=== PATIENT | male | born 1980 ===

== ENCOUNTER 2018-12-02 11:05 | Inpatient (IN) ==
[2018-12-02] MEDS ORDERED: ASPIRIN PO ONE (11:21)
[2018-12-02] MEDS ORDERED: CARDIZEM IV ONE (11:25)
--- NOTE | 2018-12-02 11:29 | EKG Report ---
Test Performed on : 12/02/2018 11:16:55 AM Test Reason : palpitations Blood Pressure : / mmHG Vent. Rate : 101 BPM Atrial Rate : 241 BPM P-R Int : 000 ms QRS Dur : 086 ms QT Int : 328 ms P-R-T Axes : 000 050 041 degrees QTc Int : 425 ms Atrial fibrillation. with rapid ventricular response. Abnormal ECG No previous ECGs available Unconfirmed Result
--- NOTE | 2018-12-02 11:42 | Diag Imaging Result Doc PS360 ---
CHEST-PORTABLE - 12/02/2018 INDICATION: sob/cp COMPARISON: None FINDINGS: The lungs are normally expanded and clear. Heart size and mediastinal contours are normal. No pneumothorax or pleural effusion. IMPRESSION: Negative exam. Electronically signed by Ashish Hernandez 12/02/2018 11:39 AM
[2018-12-02 11:47] LABS: BASO# 0.01 X1000 (0.0-0.2); BASO% 0.2 % (0.0-0.8); EOS# 0.06 X1000 (0.0-0.7); EOS% 1.2 % (0.0-10.0); HEMOGLOBIN 15.9 g/dL (14.0-18.0); LYMPH% 27.7 % (20.5-51.1); MCH 29.4 PG (27-31); MCHC 33.8 g/dL (33-37); MONO# 0.38 X1000 (0.11-0.59); MONO% 7.5 % (1.7-9.3); MPV 10.4 FL (7.4-10.4); NEUT% 63.4 % (42.2-75.2); PLT 184 X1000 (130-400); RDW 12.6 % (11.5-14.5); WBC 5.05 X1000 (4.8-10.8)
[2018-12-02 12:03] LABS: INR 1.03; PROTIME 14.4 Seconds (11.0-16.0)
[2018-12-02 12:04] LABS: PTT 32.7 Seconds (22.3-41.8)
[2018-12-02 12:10] LABS: AGAP 12; ALB/GLOB RATIO 1.6; ALBUMIN 4.5 g/dL (3.5-5.0); ALKALINE PHOSPHATASE 71 U/L (32-122); BUN 19 mg/dL (8-22); CHLORIDE 106 mmol/L (98-107); CK PROFILE 558 U/L (24-204); COSMO 287; CREATININE 1.2 mg/dL (0.7-1.2); ESTIMATED GFR > 60; GLUCOSE 98 mg/dL (70-104); GOT 22 U/L (10-34); GPT 26 U/L (10-44); POTASSIUM 4.2 mmol/L (3.5-5.1); SODIUM 143 mmol/L (136-145); TCO2 25 mmol/L (25-35); TOTAL BILIRUBIN 0.72 mg/dL (0.20-1.00); TOTAL PROTEIN 7.3 g/dL (6.3-8.3)
[2018-12-02 12:34] LABS: CK INDEX 0.4 (0.0-2.5); CK-MB 2.22 ng/mL (0.0-5.0)
[2018-12-02] MEDS: CARDIZEM 125 MG in NS 100 ML IV SCH (13:16)
--- NOTE | 2018-12-02 14:14 | PROVIDER DOCUMENTATION ---
This chart was entered by Salena Romero Scribe, acting as scribe for Sonali Vergara MD. HPI-Cardiac General - General Stated Complaint: CHEST DISCOMFORT Time Seen by Provider: 12/02/18 11:21 Source: patient Allergies/Adverse Reactions: Patient Allergies Allergy/AdvReac Type Severity Reaction Status Date / Time No Known Allergies Allergy Verified 12/02/18 12:32 - History of Present Illness-Cardiac Nature of Presenting Problem: Patient is a 38 year old male who presents with palpitations, shortness of breath and dizziness. States symptoms started 1 week ago and have been intermittent but worsened today. Patient was seen at an urgent care and was informed his EKG showed A fib. States family history of A fib. Location: reports: central Quality of Pain: reports: pressure Severity in ED: mild Onset/Duration: 1 week ago Timing: still present, intermittent, getting worse Context/Activities at Onset: reports: light activity Modifying Factors: improves with: nothing Palpitation Quality: irregular History of arrythmia: reports: none Recent use of:: reports: no stimulants Associated Symptoms: reports: dizziness, shortness of breath Similar Symptoms Previously?: Yes Recently Seen Here or By Another Healthcare Provider: No Review of Systems - Adult - REVIEW OF SYSTEMS - ADULT Constitutional: reports: no symptoms reported Eyes: reports: no symptoms reported Ears, Nose, Mouth & Throat: reports: no symptoms reported Cardiovascular: reports: palpitations. denies: chest pain, syncope Respiratory: reports: shortness of breath. denies: cough, wheezing Gastrointestinal: reports: no symptoms reported Genitourinary: reports: no symptoms reported Musculoskeletal: reports: no symptoms reported Integumentary: reports: no symptoms reported Neurological: reports: dizziness/vertigo (dizziness). denies: headache/migraines, numbness, seizure, syncope Psychiatric: reports: no symptoms reported Endocrine: reports: no symptoms reported Hematologic/Lymphatic: reports: no symptoms reported Allergic/Immunologic: reports: no symptoms reported All Other Systems: Reviewed and Negative Past History - Adult - PAST MEDICAL HISTORY-ADULT Review of Records: reports: Nursing Assessment Review, Medications Reviewed, Social history reviewed & non-contributory. Major Childhood Illnesses: reports: denies history Cardiovascular: reports: denies history Respiratory: reports: denies history Gastrointestinal: reports: denies history Obstetrical/Gynecological: reports: denies history Genitourinary: reports: denies history Musculoskeletal: reports: denies history Neurological: reports: denies history Psychiatric: reports: denies history Endocrine/Immune: reports: denies history Other Conditions: reports: denies history - PRIOR SURGERIES/PROCEDURES Surgical/Procedure History: reports: none - IMMUNIZATION STATUS Childhood Immunizations: See Nurse Assessment Flu Vaccine: See Nurse Assessment - FAMILY HISTORY Family History: reviewed, not pertinent, other (A fib) - SOCIAL HISTORY Smoking: denies Substance Use: denies Physical Exam-General - PHYSICAL EXAM-ADULT Initial Vital Signs Reviewed: Yes - CONSTITUTIONAL General Appearance: alert, no apparent distress. negative: anxious, lethargic - HEAD, EARS, NOSE, MOUTH & THROAT HENMT: moist mucous membranes - RESPIRATORY Respiratory: chest non-tender, lungs clear, normal breath sounds. negative: crackles, rhonchi - CARDIOVASCULAR Cardiovascular: normal peripheral pulses, tachycardia, irregularly irregular - GASTROINTESTINAL (ABDOMEN) Abdominal Exam: normal bowel sounds, non tender, soft. negative: guarding, tenderness - MUSCULOSKELETAL Extremity: non-tender, normal inspection. negative: swelling, tenderness - SKIN Integumentary: normal color, normal turgor, warm/dry. negative: cyanosis, jaundice - NEUROLOGIC Neurologic: grossly normal - PSYCHIATRIC Psych/Mental Status: normal mood/affect, oriented x 3. negative: anxious, paranoid Progress - PLAN OF CARE/RESULTS Progress/Plan/Lab Results: Vital Signs - 8 hr 12/02/18 11:10 Temperature 97.7 F Pulse Rate 92 H Respiratory Rate 20 Blood Pressure 145/105 O2 Sat by Pulse Oximetry 100 Laboratory Results - last 24 hr 12/02/18 12/02/18 12/02/18 11:30 11:30 11:30 WBC 5.05 RBC 5.40 Hgb 15.9 Hct 47.0 MCV 87.0 MCH 29.4 MCHC 33.8 RDW Std Deviation 12.6 Plt Count 184 MPV 10.4 Immature Gran % (Auto) 0.0 Neut % (Auto) 63.4 Lymph % (Auto) 27.7 [place] % (Auto) 7.5 Eos % (Auto) 1.2 Baso % (Auto) 0.2 Immature Gran # (Auto) 0.00 Neut # (Auto) 3.20 Lymph # (Auto) 1.40 [place] # (Auto) 0.38 Eos # (Auto) 0.06 Baso # (Auto) 0.01 PT INR PTT (Actin FS) Sodium 143 Potassium 4.2 Chloride 106 Carbon Dioxide 25 Anion Gap 12 BUN 19 Creatinine 1.2 Estimated GFR/1.73 m2 > 60 BUN/Creatinine Ratio 16 Glucose 98 Calculated Osmolality 287 Calcium 10.0 Total Bilirubin 0.72 AST 22 ALT 26 Alkaline Phosphatase 71 Creatine Kinase 558 H Creatine Kinase Index 0.4 CK-MB (CK-2) 2.22 Troponin T Thp-K-Bquvbvqmkpi Pept 44 Total Protein 7.3 Albumin 4.5 Globulin 2.8 Albumin/Globulin Ratio 1.6 12/02/18 12/02/18 11:30 11:30 WBC RBC Hgb Hct MCV MCH MCHC RDW Std Deviation Plt Count MPV Immature Gran % (Auto) Neut % (Auto) Lymph % (Auto) [place] % (Auto) Eos % (Auto) Baso % (Auto) Immature Gran # (Auto) Neut # (Auto) Lymph # (Auto) [place] # (Auto) Eos # (Auto) Baso # (Auto) PT 14.4 INR 1.03 PTT (Actin FS) 32.7 Sodium Potassium Chloride Carbon Dioxide Anion Gap BUN Creatinine Estimated GFR/1.73 m2 BUN/Creatinine Ratio Glucose Calculated Osmolality Calcium Total Bilirubin AST ALT Alkaline Phosphatase Creatine Kinase Creatine Kinase Index CK-MB (CK-2) Troponin T < 0.010 Lku-[id number]-Htkwstzpnws Pept Total Protein Albumin Globulin Albumin/Globulin Ratio Orders Category Date Time Status Cardiac Monitoring DIRECTED Care 12/02/18 11:23 Active Oxygen Therapy- ED Nursing DIRECTED Care 12/02/18 11:23 Active Saline Loc NOW Care 12/02/18 11:23 Active CHEST-PORTABLE [RAD] Stat Exams 12/02/18 11:24 Completed CBC WITH ELECTRONIC DIFF [HEME] Stat Lab 12/02/18 11:30 Completed CK PROFILE [SP CHEM] Stat Lab 12/02/18 11:30 Completed COMPREHENSIVE METABOLIC PANEL [CHEM] Stat Lab 12/02/18 11:30 Completed PRO B-NATRIURETIC PEPTIDE Stat Lab 12/02/18 11:30 Completed PROTIME WITH INR [COAG] Stat Lab 12/02/18 11:30 Completed PTT [COAG] Stat Lab 12/02/18 11:30 Completed TROPONIN T Stat Lab 12/02/18 11:30 Completed 0.9% Sodium Chloride Inj [Ns] 100 ml Med 12/02/18 11:30 Active Diltiazem [Cardizem] 125 mg IV As Directed mls/hr Aspirin Med 12/02/18 11:21 Discontinued 325 mg PO NOW ONE Diltiazem [Cardizem] Med 12/02/18 11:25 Discontinued 10 mg IV NOW ONE CP/SOB/Palp >45 yrs of Age Stat Oth 12/02/18 11:21 Ordered EKG [EKG] Stat Ther 12/02/18 11:23 Draft Result Diagrams: 12/02/18 11:30 12/02/18 11:30 - EKG 1 Time of EKG reading by physician:: 11:16 EKG Read and Signed by:: Sonali Vergara EKG Interpretation (*Must complete 3 of following elements*): Abnormal Rate: 101 Rhythm: atrial fibrillation with rapid ventricular response Comments: abnormal ECG - XRAY 1 XRAY Study: Chest Impression: See EMR Report (CHEST-PORTABLE - 12/02/2018 INDICATION: sob/cp COMPARISON: None FINDINGS: The lungs are normally expanded and clear. Heart size and mediastinal contours are normal. No pneumothorax or pleural effusion. IMPRESSION: Negative exam. Electronically signed by Ashish Hernandez 12/02/2018 11:39 AM 12/02/18 113 Interpreting Physician: Ashish Hernandez MD Dictated Date/Time: 12/02/181138 cc: Sonali Vergara MD; None,PCP) - CONSULTS/PCP/HOSPITALIST Notification #1 *Consult/PCP/Hospitalist*: MIKA Richardson for Hospitalist Time Discussed: 13:07 (Dr. Johnson accepted admit) Reason/Comments: Dr. Vergara consulted with Debra about patient. Consult Disposition: Admit Departure - Departure Date of Disposition Decision: 12/02/18 Time of Disposition Decision: 13:07 DIAGNOSIS: New onset atrial fibrillation Disposition: ADMITTED INPATIENT 09 Certified Medical Emergency: Emergent Condition: Stable Referrals and Follow-Ups: None,PCP [Primary Care Provider] - - Critical Care Note This patient required my direct & personal management of CC.: Yes Total Time (mins): 31 Critical Care Statement: This patient required my direct personal management to treat or rule out processes, the absence of which, could potentiallly result in sudden, clinically significant life or limb threatening deterioration. Attestation - Physician/ QUINTIN Attestation The physician spent face to face time with patient:: Yes Advanced Practice Provider documentation review:: Supervising physician onsite and consulted in the evaluation and care of this patient. The physician did have a face to face encounter with the patient. This chart was documented by the indicated scribe, (Salena Romero Scribe) and accurately reflects the services I performed and decisions made by me, Sonali Vergara MD, as attested by the provider's signature.
[2018-12-02] MEDS ORDERED: ZOFRAN IV PRN (14:52)
[2018-12-02] MEDS ORDERED: TYLENOL PO PRN (14:52)
--- NOTE | 2018-12-02 15:06 | EKG Report ---
Test Performed on : 12/02/2018 2:58:45 PM Test Reason : afib rvr Blood Pressure : / mmHG Vent. Rate : 067 BPM Atrial Rate : 063 BPM P-R Int : 000 ms QRS Dur : 094 ms QT Int : 374 ms P-R-T Axes : 000 053 048 degrees QTc Int : 395 ms Atrial fibrillation. Nonspecific ST abnormality Abnormal ECG When compared with ECG of 02-DEC-2018 11:16, (Unconfirmed) Vent. rate has decreased BY 34 BPM Unconfirmed Result
--- NOTE | 2018-12-02 15:38 | HISTORY AND PHYSICAL ---
PRIMARY CARE PROVIDER: Dr. Leobardo Quiroz from [place]. CHIEF COMPLAINT: Irregular heart rhythm from Med/Surg. HISTORY OF PRESENT ILLNESS: Mr. Portillo is a pleasant 38-year-old male who carries no past medical history, states he woke up this a.m. feeling short of breath. He went into a local med/surge to have his blood pressure and heart rate checked. He was found to be in atrial fibrillation with RVR and was directed to the ED. Upon arrival to the ED, EKG showed atrial fibrillation with RVR at 101 beats per minute. He was given a Cardizem bolus with no change. She was started on a Cardizem drip. Chest x-ray was a negative exam. Laboratory data essentially unremarkable. He was hypertensive upon arrival. 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 He will sometimes have amino acid. He states that he stopped his pre workout a couple of weeks ago secondary to being not in competition, and he states at work he started drinking coffee, about 5 cups a day. He was positive for shortness of breath. He states he felt dizzy after they told him what his EKG read and he just kind of felt funny. We will admit him to the [facility] with a Cardiology consult to continue his Cardizem drip. PAST MEDICAL HISTORY: Denies. PAST SURGICAL HISTORY: Denies. FAMILY HISTORY: Mother in her 70s, diagnosed with atrial fibrillation for 5 years now. HOME MEDICATIONS: None. ALLERGIES: No known drug allergies. REVIEW OF SYSTEMS: A 14-point review of systems completely negative except for those mentioned in HPI. There is no chest pain. No fever. No chills. No nausea, no vomiting, no diaphoresis. No constipation. No cough. No productive sputum. PHYSICAL EXAMINATION: VITAL SIGNS: Temperature is 97.2 degrees, heart rate 94, respirations 20, blood pressure is 165/104, O2 is 98% on room air. GENERAL: Mr. Portillo is a pleasant 38-year-old male who is lying on the stretcher in no acute distress. HEENT: Atraumatic, normocephalic. PERRL. NECK: Supple. Trachea midline. CARDIOVASCULAR: Irregular rate and rhythm. No murmurs, gallops, rubs noted. RESPIRATORY: Lung sounds clear. CHEST: Nonlabored breathing. GI: Soft, nontender, nondistended. Positive bowel sounds 4 quadrants. EXTREMITIES: Negative for edema. No clubbing, no cyanosis. SKIN: Warm dry and intact. NEUROLOGIC: No focal deficits noted. The patient is alert and oriented x4. Follows commands. Moves all extremities. DIAGNOSTIC DATA: Chest x-ray: Negative exam. Initial EKG: Atrial fibrillation with RVR at 101 beats per minute. LABORATORY DATA: White count 5, hemoglobin and hematocrit 15 and 47, platelet count is 184,000. Sodium 143, potassium 4.2, BUN 19, creatinine 1.2, blood glucose is 98. Troponin less than 0.010. Magnesium 1.8. ASSESSMENT AND PLAN: 1. Atrial fibrillation with rapid ventricular rate. The patient was given a Cardizem bolus and initiated on Cardizem drip. We will recheck an EKG when he gets to [facility]. Consult Cardiology. Check an echocardiogram. No caffeine. Continue to trend his cardiac enzymes. He denies any chest pain. Consult Cardiology. Check TSH, free T4. Continue to trend his cardiac enzymes. He denies any chest pain. We will recheck a chest x-ray in the a.m. Continue on full dose aspirin for now and DVT prophylaxis. Await Cardiology's recommendations. 2. Hypertension. The patient was somewhat anxious in the room. Unsure if this is a new medical condition or secondary to nerves. Again, he is on a Cardizem drip. Will and p.r.n's as needed. Await cardiology's recommendations. 3. Further recommendations to follow physician evaluation, laboratory, and diagnostic data. Patient seen and examined by me face to face, all the laboratory, vitals signs and images were reviewed, patient presented to the ED after been evaluated in a medical center due to of shortness of breath, he was found to be tachycardic,in the ED the EKG showed Atrial fibrillation with RVR, he has been drinking a lot of energy drinks and caffein which can cause this type of problem, I discussed this with the patient, he was placed on Diltiazem drip, cardiology consultation, I agree with the rest of the TOOL AND MACHINE MAINTAINER's assessment and plan, Yasir Diane MD. Dictated by MIKA Benton for Yasir Miguel MD cc: MD Leobardo Paez
--- NOTE | 2018-12-02 16:22 | CARDIOLOGY CONSULTATION ---
DATE: 12/02/2018 HISTORY OF PRESENT ILLNESS: Mr. Portillo is a 38-year-old gentleman who was admitted with atrial fibrillation and is on a Cardizem drip. Cardiology was consulted. The patient has been having episodes of palpitations off and on. He had been using clenbuterol for body building purposes for the last 7 to 10 years. During that time he noticed palpitations as well. He stopped using this for the last 7 or 8 months; however, he has been having increasing intake of caffeine as tablets, as well as energy drinks. Today he noticed some uncomfortable feeling in his chest with atrial fibrillation. He came to the emergency room, was started on a Cardizem drip. There is no history of dizziness or syncope. Denies exertional component of chest pain. There is no orthopnea or paroxysmal nocturnal dyspnea. REVIEW OF SYSTEM: A 14-point review of systems was done.Gastrointestinal: There is no history of nausea, vomiting, diarrhea. There is no history of hematemesis or melena. Central nervous system: No focal weakness to suggest a CVA or TIA. Genitourinary: There is no dysuria or hematuria. PAST MEDICAL HISTORY: Noncontributory. PAST SURGICAL HISTORY: Noncontributory. FAMILY HISTORY: Mother is in her 70s, has had atrial fibrillation. ALLERGIES: He is not known to be allergic to any medication. PHYSICAL EXAMINATION: Vital Signs: Blood pressure was 128/36. Neck: Jugular venous pressure was normal. Cardiac: First and second heart sounds were heard. There is no S3 or S4 gallop. Respiratory System: Normal air entry. There are no crepitations or rhonchi. Abdomen: Soft, nontender. There was no guarding or rigidity. Bowel sounds were heard. Central Nervous System: Alert and was moving all 4 extremities. Extremities: Examination of the extremities revealed no pedal edema. HEENT: Atraumatic, normocephalic. Pupils were equal and reacting to light. LABORATORY EXAMINATION: Sodium 143, potassium 4.2, BUN 19, creatinine 1.2. Hematology was unremarkable. Chest x-ray was unremarkable. ASSESSMENT AND PLAN: Mr. Costa Portillo is a 38-year-old gentleman who has been using bodybuilding medications as mentioned above and side effects of which is palpitations and atrial fibrillation. He did notice episodes of palpitations when he was using that. For the last 7 months he had stopped it; however, he has a significant increase caffeine intake with tablets, as well as energy drinks. He has noted increasing palpitations. He came to the emergency room, was admitted with atrial fibrillation. PLAN: 1. More than likely this will revert to sinus rhythm. If it does not, I have discussed with him we will plan for a ASHLIE cardioversion tomorrow. We will put him on Lovenox and continue with the Cardizem drip. 2. We will get an echocardiogram to assess cardiac and valvular function today. 3. If he converts to sinus rhythm, we will plan for exercise Cardiolite stress test to rule out any exercise-induced dysrhythmias, as well as rule out ischemia, low probability of which there is. For the present I have not made any other changes. We will also get a thyroid profile. Thank you for the consult. We will follow. cc: Otto Adler MD MTDD
[2018-12-02 16:56] LABS: CK INDEX 0.4 (0.0-2.5); CK-MB 1.91 ng/mL (0.0-5.0)
[2018-12-02] MEDS ORDERED: LOVENOX SUBQ SCH (18:00)
[2018-12-03] LABS: CK INDEX 0.4 (0.0-2.5); CK-MB 1.68 ng/mL (0.0-5.0)
[2018-12-03] MEDS ORDERED: RESTORIL PO ONE (00:06)
[2018-12-03] MEDS: CARDIZEM 125 MG in NS 100 ML IV SCH (00:57)
[2018-12-03 05:34] LABS: BASO# 0.01 X1000 (0.0-0.2); BASO% 0.2 % (0.0-0.8); EOS# 0.11 X1000 (0.0-0.7); EOS% 1.7 % (0.0-10.0); HEMATOCRIT 49.7 % (42.0-52.0); HEMOGLOBIN 16.4 g/dL (14.0-18.0); IMM GRAN# 0.02 X1000 (0.0-0.04); IMM GRAN% 0.3 % (0.0-0.5); LYMPH# 1.99 X1000 (1.2-3.4); LYMPH% 30.2 % (20.5-51.1); MCH 28.8 PG (27-31); MCV 87.3 FL (81-99); MONO# 0.52 X1000 (0.11-0.59); MONO% 7.9 % (1.7-9.3); MPV 10.4 FL (7.4-10.4); NEUT# 3.94 X1000 (1.4-6.5); NEUT% 59.7 % (42.2-75.2); PLT 193 X1000 (130-400); RBC 5.69 XMIL (4.7-6.1); RDW 12.9 % (11.5-14.5); WBC 6.59 X1000 (4.8-10.8)
[2018-12-03 06:04] LABS: AGAP 10; ALB/GLOB RATIO 1.5; ALBUMIN 4.4 g/dL (3.5-5.0); ALKALINE PHOSPHATASE 71 U/L (32-122); BUN 15 mg/dL (8-22); CALCIUM 9.7 mg/dL (8.8-10.2); CHLORIDE 106 mmol/L (98-107); COSMO 284; CREATININE 1.3 mg/dL (0.7-1.2); GLUCOSE 99 mg/dL (70-104); GOT 20 U/L (10-34); GPT 24 U/L (10-44); MAGNESIUM 1.9 mg/dL (1.5-2.7); POTASSIUM 4.5 mmol/L (3.5-5.1); SODIUM 142 mmol/L (136-145); TCO2 26 mmol/L (25-35); TOTAL BILIRUBIN 0.81 mg/dL (0.20-1.00); TOTAL PROTEIN 7.4 g/dL (6.3-8.3)
[2018-12-03 06:26] LABS: FREE T4 1.3 ng/dL (0.93-1.70); TSH 2.99 uIUmL (0.27-4.20)
--- NOTE | 2018-12-03 07:24 | EKG Report ---
Test Performed on : 12/03/2018 06:52:43 AM Test Reason : Afib RVR Blood Pressure : / mmHG Vent. Rate : 068 BPM Atrial Rate : 068 BPM P-R Int : 134 ms QRS Dur : 090 ms QT Int : 368 ms P-R-T Axes : 065 063 059 degrees QTc Int : 391 ms Normal sinus rhythm. with sinus arrhythmia. Early repolarization Normal ECG When compared with ECG of 02-DEC-2018 14:58, (Unconfirmed) Sinus rhythm. has replaced Atrial fibrillation. Unconfirmed Result
--- NOTE | 2018-12-03 07:32 | Diag Imaging Result Doc PS360 ---
EXAM: CHEST-PORTABLE INDICATION: follow up TECHNIQUE: One view COMPARISON: 12/02/2018 FINDINGS: The lungs are grossly clear. There is no discrete pleural fluid collection or pneumothorax. The cardiomediastinal silhouette and central vasculature are grossly unremarkable. IMPRESSION: No evidence of acute pathology by plain radiograph. Electronically signed by Wyatt Bell 12/03/2018 7:29 AM
[2018-12-03] MEDS ORDERED: ASPIRIN PO SCH (09:00)
--- NOTE | 2018-12-03 09:41 | PROGRESS NOTE ---
DATE: 12/03/2018 SUBJECTIVE: Patient is not complaining of chest pain or shortness of breath. Electrocardiogram today showed normal sinus rhythm, but he has been having atrial fibrillation/flutter on and off. I will wait for Cardiology recommendations. We will monitor. OBJECTIVE: Vital Signs: Temperature 97.5 degrees, pulse 71, respiratory rate 16, blood pressure 113/67, oxygen saturation 99 on room air. HEENT: Head normocephalic. No trauma. PERRLA. Neck: Supple. No JVD. No masses. Central trachea. Chest: Clear to auscultation. No wheezing. No rales. Cardiovascular: RRR. No murmurs. No gallops. No rubs. Abdomen: Soft, nontender, nondistended. No hepatosplenomegaly. Extremities: No edema, no clubbing, no cyanosis. Neurological examination: The patient is alert and oriented x3. No focal deficits. LABORATORY: WBC 6.5, hemoglobin 16.4, hematocrit 49.7, platelets 193. Sodium 142, potassium 4.5, chloride 106, bicarbonate 26. BUN 15, creatinine 1.3, glucose 99, calcium 9.7. ASSESSMENT AND PLAN: 1. Atrial fibrillation with rapid ventricular response. At this moment he is in sinus rhythm, but he has been having atrial fibrillation/flutter on and off. We will continue monitoring this patient in the [facility]. Cardiology Department is following this patient closely. Thyroid stimulating hormone is normal, as well as cardiac enzymes. He denies chest pain or palpitations. He was scheduled to get transesophageal echocardiogram and cardioversion if he is in atrial fibrillation, but at this moment I will wait for Cardiology's re-evaluation. 2. Hypertension. Blood pressure has been stable. For now, I will just monitor. He is on diltiazem drip still. cc: Yasir Miguel MD
--- NOTE | 2018-12-03 12:23 | ECHO REPORT ---
ORDER DATE: 12/02/2018 INDICATION: Atrial fibrillation. FINDINGS: 1. Right atrium is mildly enlarged at 4.1 cm. 2. Trace tricuspid regurgitation with RV systolic pressure of 24. 3. Normal RV size and systolic function. 4. No significant pulmonic insufficiency. 5. Normal left atrial size with a dimension of 3.6 cm. 6. No mitral prolapse. Trace mitral regurgitation. 7. Normal LV size, end-diastolic dimension of 4.9. Normal wall thicknesses with a posterior and interventricular septal thickness of 1.0 cm each. Normal LV systolic function. Estimated EF of 55% with normal wall motion. 8. The aortic valve opens well. There is no evidence of stenosis. No insufficiency. The cusps of the aortic valve were not clearly individually visualized. 9. The aorta appears normal in visualized segments. 10. No pericardial effusion seen. 11. Patient appears to be in rate-controlled atrial fibrillation during this study. cc: Eleuterio Gutierrez MD
[2018-12-03 15:53] VITALS: BP 141/83
--- NOTE | 2018-12-03 23:06 | DISCHARGE SUMMARY ---
ADMISSION DATE: 12/02/2018 DISCHARGE DATE: 12/03/2018 DIAGNOSES: 1. Atrial fibrillation with rapid ventricular response. 2. Hypertension. CONSULTS: Dr. Otto Adler, Cardiology. DIAGNOSTIC DATA: 1. On 12/02/2018 chest x-ray revealed lungs are normally expanded and clear. Heart size and mediastinal contours are normal. No pneumothorax or pleural effusion. 2. On 12/02/2018 echocardiogram revealed normal LV size, normal LV systolic function with estimated EF 55%. 3. On 12/03/2018 chest x-ray, lungs are grossly clear. There is no discrete pleural fluid collection or pneumothorax. Cardiomediastinal silhouette and central vasculature are grossly unremarkable. HOSPITAL COURSE: Mr. Portillo presented to the emergency room after having been found to be in atrial fibrillation with RVR at his primary care, where he went for evaluation of feeling short of breath. He was admitted to ICU. He was placed on a Cardizem drip. Echocardiogram was performed which revealed no valvular dysfunction. He was evaluated by Cardiology, who recommended a ASHLIE with cardioversion if he did not convert to sinus rhythm, and a Cardiolite stress test to rule out exercise-induced dysrhythmias or ischemia if he did convert to sinus rhythm. The patient requested to be transferred to [facility]. Luckily he was able to be accepted and a bed became available for transfer today. Of note, the patient is a body worker. He has been using clenbuterol as well as caffeine tablets and energy drinks. PHYSICAL EXAMINATION: Discharge vital signs: Blood pressure is 133/77 with a heart rate of 84, respirations are 17, temperature is 98.4 degrees oral with room air saturations 99% to 100%. Cardiovascular: Irregularly irregular rate and rhythm. S1 and S2 are appreciated. Pulmonary: Breath sounds are clear, with no increased work of breathing noted. Gastrointestinal: Abdomen is soft, nontender, nondistended with bowel sounds in all 4 quadrants. Neurologic: He is alert and oriented x3. DISCHARGE MEDICATIONS: 1. Cardizem drip. 2. Aspirin 325 p.o. daily. 3. Lovenox 40 mg q. 24 hours. 4. Zofran 4 mg IV q.4 hours p.r.n. nausea. DISPOSITION: He has been transferred to [facility]. We will continue his Cardizem drip. Further medications, followup and treatment will be per their expertise. Dictated by MIKA Landry for Yasir Miguel MD This chart was documented by, MIKA Landry and accurately reflects the services performed, treatment plan and medical decisions as attested by the providers signature Yasir Miguel MD. cc: MIKA Landry MD
== END 2018-12-03 16:42 | disposition short-term general hospital (02) | DRG 310 ==
LOC: SUPCPDRO → ED 11:05 → 3S 11:06
PROVIDERS: ATTEND Internal Medicine
CPT/HCPCS: 71010; 71045; 80053; 82550; 82553; 83735; 83880; 84439; 84443; 84484; 85025; 85610; 85730; 93005; 93010; 93306; 93312; 96365; 96375; 99285; A9270; J1650